=== PATIENT | male | born 1965 | race African-American/Black ===

== ENCOUNTER 2019-08-26 08:56 | Emergency (ER) | payer OTHER ==
[~2019-08-26] VITALS: Ht 185.4 cm; Wt 81.6 kg
[~2019-08-26 08:56] MED LIST: GABA300C16 PO; HYDR25TA6 PO; IBUP800T48 PO
[2019-08-26 08:59] VITALS: BP 159/107; PULSE 80; RESP 18; Ht 185.4 cm; Wt 81.6 kg
== END 2019-08-26 09:25 | disposition home or self-care (01) ==
LOC: FTE 08:56
DX: M54.5 Low back pain (principal); G89.29 Other chronic pain; I10 Essential (primary) hypertension; F17.210 Nicotine dependence, cigarettes, uncomplicated; Z76.0 Encounter for issue of repeat prescription
CPT/HCPCS: 99282